=== PATIENT | male | born 1990 | race Caucasian/White ===

== ENCOUNTER 2025-06-22 13:32 | Emergency (ER) | payer SELFPAY ==
[2025-06-22 13:43] VITALS: BP 135/71; PULSE 73; RESP 16; TEMP 36.4; O2SAT 95; BMI 23.2
--- NOTE | 2025-06-22 13:43 | ED.GENADULT ---
HPI - General Adult General Chief complaint: General Medical Stated complaint: Possible rabies exposure Time Seen by Provider: 06/22/25 14:15 Source: patient and RN notes reviewed Mode of arrival: ambulatory Limitations: no limitations History of Present Illness ED Provider: Adriana Frias PA-C HPI narrative: This is a 34-year-old male, with no known medical problems, who presents emergency department after bat exposure. Patient states that there is a bat in his house. States that he used a towel to her move it from the house. No known bites or scratches from bat. He has never received the rabies series before. He is feeling well, no current complaints. No fevers, chills, chest pain or shortness of breath. No other complaints or concerns at this time. MD complaint: Bat exposure Exacerbating factors: none Associated symptoms: denies other symptoms Treatments prior to arrival: none Related Data Allergies Allergy/AdvReac Type Severity Reaction Status Date / Time No Known Allergies Allergy Verified 06/22/25 13:45 Review of Systems Review of Systems: Yes all other systems are reviewed and are negative Constitutional: Constitutional: Reports as per HPI Physical Exam ED Vital Signs: Vital Signs - 24 hr 06/22/25 13:43 Temperature 97.5 F Pulse Rate 73 Respiratory Rate 16 Blood Pressure 135/71 Pulse Oximetry 95 Oxygen Delivery Method Room Air BMI result Body Mass Index 23.2 General: Awake, alert, and oriented X3. No acute distress. HEENT: Normal inspection CVS: Normal heart rate and rhythm. Pulses normal. Respiratory: No respiratory distress Skin: Warm, dry, no rashes noted to exposed skin. Normal skin color. Normal skin turgor. Extremities: Normal to inspection Neuro: Oriented X 3. No motor deficit. No sensory deficit. Course Course Course Narrative: This is a Rapid Medical Examination (RME) performed by Dontrell Mercado PA-C in triage. Full HPI, ROS, assessment and treatment plan per primary provider in the Main ED. Hx: 34 yo M here w/ concerns for rabies exposure. reports seeing a bat in his home last (6 days ago). he grabbed the bat with a towel and threw it out the window. denies any known physical contact with the bat itself. denies any symptoms. was reading about bat exposures online and felt he should come to the ED for evaluation. PE/vitals: well appearing Plan: rabies series Medical Decision Making Medical Decision Making [facility] Narrative: This is a 34-year-old male who presents emergency department after being exposed to a bat. He has never received a rabies series. On arrival, vital signs within normal limits. He is speaking in full sentences under no acute distress. He has no physical complaints. Will start rabies series, he will follow-up with the infusion center. He understands and agrees with plan. Given strict return precautions. Patient stable for discharge Differential Diagnosis Differential Diagnoses: The differential diagnosis associated with the presentation includes Rabies vaccination, bat exposure, animal bite Discharge Plan Discharge Clinical Impression: Rabies, need for prophylactic vaccination against, Exposure to bat without known bite Patient Disposition: Home, Self-Care Instructions: Rabies (ED) Additional Instructions: We started the rabies vaccination series due to recent exposure to a bat. Rabies follow up with the [facility]: Upon discharge from the ED today, you will be contacted by the Infusion Center to schedule your follow up Rabies vaccines. You will need a total of 3 more injections. If for some reason you do not receive a call, please call the Infusion Center directly at [phone]. Follow up with your primary care provider after completion of the vaccine to have a titer drawn to ensure the vaccines effectiveness. If any new or worsening symptoms occur including but not limited to severe chest pain, shortness of breath, headache, dizziness, blurred vision, changes in behavior, please seek emergent care. Print Language: Kiswahili
[2025-06-22] MEDS: Rabies Vaccine (PCEC)/PF 1 ML VIAL IM (15:58)
[2025-06-22] MEDS: Rabies Immune Globulin/PF 900 UNIT/3 ML VIAL 1772 UNIT IM (15:59)
[2025-06-22 16:23] VITALS: BP 135/71; PULSE 73; RESP 16; TEMP 36.4; O2SAT 95
--- OUTSIDE RECORDS SUMMARY | 2025-06-22 16:45 | XMS_ITS | Clinical Summary ---
Author Organization [facility] Address [address] [place] [address] Phone Care Team Providers Care Cable Strander Name Role Phone Unavailable Primary Care Provider Unavailabl e Immunizations Immunization Administration Dates Next Due DTP 03/07/1994, 0,06/04/1989,1988,01/02/1989 Hep B, ped/adol 06/11/2001,06/13/2000,05/09/2000 Hib (PRP-T) 1990 MMR 06/26/2000,06/04/1990 OPV 03/07/1994, 0,06/04/1989,1988 Td (adult) (MBL), 2 Lf tetan us toxoid, PF, adsorbed 06/22/2005,03/18/2000 Family History Relation Name Status Comments Father Alive Father: Alive a nd well Mother Alive Mother: Alive a nd well Paternal Grandmother Paterna l grandmother: diabetes/lupus Social History Tobacco Use Types Packs/Day Years Used Date Smoking Tobacco: Never Assessed Sex and Gender Information Value Date Recorded Sex Assigned at Not on file Legal Sex Male 4:26 PM EDT Gender Identity Not on file Sexual Orientation Not on file Plan of Treatment Health Maintenance Due Date Last Done Comments Varicella Vaccines (1 of 2 - 13+ 2-dose series) 2001 DTaP,Tdap,and Td Vaccines (6 - Tdap) 06/23/2005 06/22/2005, 03/18/2000, 03/07/1994, Additional history exists HPV Vaccines (1 - 3-dose SCDM series) 2015 COVID-19 Vaccine ( - season) 2024 Influenza Vaccines (#1) 2025 HIB Vaccines Completed 1990 IPV Vaccines Completed 03/07/1994, 11/1989, 06/04/1989, Additional history exists MMR Vaccines Completed 06/26/2000, 06/04/1990 Hepatitis B Vaccines Completed 06/11/2001, 06/13/2000, 05/09/2000 Hepatitis A Vaccines Aged Out No long er eligible based on patient's age to complete this topic Men B Vaccine Aged Out No longer elig ible based on patient's age to complete this topic Meningococcal Vaccine Aged Out No oscar shabnam eligible based on patient's age to complete this topic Pneumococcal Vaccine Aged Out No long er eligible based on patient's age to complete this topic
--- OUTSIDE RECORDS SUMMARY | 2025-06-22 16:45 | XMS_ITS ---
Author Name [facility] Organization Unknown Care Team Organization Name Specialty Phone Email Start Date End Da leonel [facility] REBECCA MELANI Primary Care 09/11/2022 4
== END 2025-06-22 16:24 | disposition home or self-care (01) ==
PROVIDERS: Emergency Provider Emergency Medicine; PCP Internal Medicine
DX: Z20.3 Contact with and (suspected) exposure to rabies (principal); Z23 Encounter for immunization
CPT/HCPCS: 90375; 90471; 90675; 96372; 99282; 99284

== ENCOUNTER 2025-07-09 08:40 | Outpatient (RCR) | payer SELFPAY ==
[2025-06-28 14:33] VITALS: BP 112/68; PULSE 70; RESP 16; TEMP 37.4; O2SAT 98
[2025-06-28] MEDS: Rabies Vaccine (PCEC)/PF 1 ML VIAL IM (14:37)
[2025-07-02 08:38] VITALS: BP 121/77; PULSE 89; RESP 16; TEMP 36.6; O2SAT 100
[2025-07-02] MEDS: Rabies Vaccine (PCEC)/PF 1 ML VIAL IM (08:39)
[2025-07-09 08:36] VITALS: BP 112/74; PULSE 79; RESP 16; TEMP 36.7; O2SAT 98
[2025-07-09] MEDS: Rabies Vaccine (PCEC)/PF 1 ML VIAL IM (08:37)
== END 2025-07-09 08:41 | disposition home or self-care (01) ==
LOC: HO.INF 08:40
PROVIDERS: Visit Provider Physician Assistant Medical
DX: Z20.3 Contact with and (suspected) exposure to rabies (principal)
CPT/HCPCS: 90471; 90675